=== PATIENT | female | born 1985 | race African-American/Black ===

== ENCOUNTER 2024-05-23 03:47 | Emergency (ER) | payer OTHER ==
[~2024-05-23] VITALS: Ht 170.2 cm; Wt 125.0 kg
[2024-05-23 03:50] VITALS: O2SAT 98
[2024-05-23 04:51] LABS: BASOPHILS % 0.2 % (0.0-2.0); EOSINOPHILS % 0.1 % (0.0-5.0); HEMATOCRIT. 36.2 % (36.0-48.0); LYMPHOCYTES % 17.2 % (20.0-50.0); MEAN CORPUSCULAR HEMOGLOBIN 29.9 pg (28.0-32.0); MEAN CORPUSCULAR HGB CONC 33.2 g/dL (31.0-37.0); MEAN CORPUSCULAR VOLUME 89.9 fL (81.0-99.0); MEAN PLATELET VOLUME 7.9 fl (7.4-10.4); MONOCYTES % 5.3 % (2.0-8.0); NEUTROPHILS % 77.2 % (40.0-76.0); PLATELET 244 x1000/uL (130-400); RED BLOOD CELL COUNT 4.03 mill/uL (4.2-5.4); RED CELL DISTRIBUTION WIDTH 14.4 % (11.6-14.6); WHITE BLOOD COUNT 9.3 x1000/uL (4.5-11.0)
[2024-05-23 05:04] LABS: CHLORIDE 107 mEq/L (98-107); POTASSIUM 3.9 mEq/L (3.5-5.1); SODIUM 139 mEq/L (136-145)
[2024-05-23 05:05] LABS: CARBON DIOXIDE 21 mEq/L (21-32)
[2024-05-23 05:06] LABS: CALCIUM 8.8 mg/dL (8.7-10.4)
[2024-05-23] MEDS: SODIUM CHLORIDE 0.9% 1,000 ML IV ONE (05:06)
[2024-05-23 05:10] LABS: CREATININE 0.8 mg/dL (0.6-1.0)
[2024-05-23 05:11] LABS: ETHANOL BLOOD < 10 mg/dL (<10); GLUCOSE 109 mg/dL (70-105); UREA NITROGEN BLOOD 6 mg/dL (9-23)
[2024-05-23 05:28] LABS: CLARITY URINE CLEAR (CLEAR); COLOR URINE YELLOW (YELLOW); GLUCOSE URINE NEGATIVE (NEGATIVE); KETONES URINE NEGATIVE (NEGATIVE); LEUKOCYTE ESTERASE URINE NEGATIVE (NEGATIVE); NITRITE URINE NEGATIVE (NEGATIVE); OCCULT BLOOD URINE NEGATIVE (NEGATIVE); PH URINE 5.5 (4.5-8.0); PROTEIN URINE NEGATIVE (NEGATIVE); SPECIFIC GRAVITY URINE 1.008 (1.005-1.030); UROBILINOGEN URINE 0.2 E.U./dL (0.2-1.0)
[2024-05-23 05:31] LABS: HCG SCREEN NEGATIVE
[2024-05-23 05:34] LABS: *AMPHETAMINES SCREEN URINE NEGATIVE (NEGATIVE); *BARBITURATES SCREEN URINE NEGATIVE (NEGATIVE); *BENZODIAZEPINES SCREEN URINE NEGATIVE (NEGATIVE); *COCAINE SCREEN URINE NEGATIVE (NEGATIVE); METHADONE URINE SCREEN NEGATIVE (NEGATIVE); OPIATES URINE SCREEN NEGATIVE (NEGATIVE)
[2024-05-23 05:35] LABS: ECSTASY MDMA SCREEN URINE NEGATIVE (NEGATIVE); PHENCYCLIDINE URINE SCREEN NEGATIVE (NEGATIVE)
[2024-05-23 11:00] VITALS: BP 155/85; PULSE 96; RESP 16; TEMP 98.3
== END 2024-05-23 16:00 | disposition home or self-care (01) ==
LOC: ER 03:47
DX: F28 Other psychotic disorder not due to a substance or known physiological condition (principal); E11.9 Type 2 diabetes mellitus without complications; Z59.00 Homelessness unspecified; Z20.822 Contact with and (suspected) exposure to COVID-19
CPT/HCPCS: 80305; 80048; 81003; 80320; 84703; 85025; 36415; 99284; 87426; J7030; G0480

== ENCOUNTER 2024-05-31 13:15 | Emergency (ER) | payer OTHER ==
[~2024-05-31] VITALS: Ht 162.6 cm; Wt 95.0 kg
[2024-05-31 13:25] VITALS: O2SAT 99
[2024-05-31] MEDS ORDERED: D-ME473S50 PO (14:13)
[2024-05-31 14:47] VITALS: BP 144/74; PULSE 74; RESP 18; TEMP 98.9
== END 2024-05-31 14:47 | disposition home or self-care (01) ==
LOC: ER 13:15
DX: R05.9 Cough, unspecified (principal); I10 Essential (primary) hypertension; F20.9 Schizophrenia, unspecified
CPT/HCPCS: 71045; 99283